=== PATIENT | female | born 1985 | race African-American/Black ===

== ENCOUNTER 2017-05-09 14:20 | Emergency (ER) | payer OTHER, SELFPAY ==
--- NOTE | 2017-05-09 15:34 | RAD ---
LEFT TOES 3 VIEWS: CLINICAL HISTORY: Injury, pain. FINDINGS: Left toe series centered on the 1st and 2nd digits reveals no evidence of fracture or dislocation. N o radiopaque foreign body visualized. IMPRESSION: No acute fracture evident. POS: [facility]
[2017-05-09] MEDS ORDERED: Ketorolac Tromethamine 30 MG/ML VIAL ONE (16:46)
== END 2017-05-09 17:09 | disposition home or self-care (01) ==
LOC: ERS 14:20
DX: S90.112A Contusion of left great toe without damage to nail, initial encounter (principal); F17.210 Nicotine dependence, cigarettes, uncomplicated; W22.8XXA Striking against or struck by other objects, initial encounter
CPT/HCPCS: 96372; J1885

== ENCOUNTER 2017-05-21 14:55 | Emergency (ER) | payer SELFPAY ==
[2017-05-21] MEDS ORDERED: Lidocaine 1% w/Epinephrine 1:100K 20 ML VIAL ONE (17:11)
== END 2017-05-21 19:08 | disposition home or self-care (01) ==
LOC: ERS 14:55
DX: L72.3 Sebaceous cyst (principal); F17.210 Nicotine dependence, cigarettes, uncomplicated
CPT/HCPCS: 10060; 99406; J2001

== ENCOUNTER 2019-11-11 16:13 | Emergency (ER) | payer MEDICARE, SELFPAY | END 2019-11-11 17:07 | disposition home or self-care (01) | LOC: ERS 16:13 | DX: L02.01 Cutaneous abscess of face (principal); F17.210 Nicotine dependence, cigarettes, uncomplicated | CPT/HCPCS: 10060 ==

== ENCOUNTER 2019-11-23 03:09 | Emergency (ER) | payer MEDICARE, SELFPAY ==
[2019-11-23] MEDS ORDERED: Ketorolac Tromethamine 30 MG/ML VIAL ONE (03:22)
== END 2019-11-23 03:28 | disposition home or self-care (01) ==
LOC: ERS 03:09
DX: K02.9 Dental caries, unspecified (principal); F17.210 Nicotine dependence, cigarettes, uncomplicated
CPT/HCPCS: 96372; 99282; J1885

== ENCOUNTER 2020-06-09 10:43 | Emergency (ER) | payer SELFPAY ==
[2020-06-09] MEDS ORDERED: Ondansetron ODT 8 MG TAB ONE (11:41)
[2020-06-09] MEDS ORDERED: Ketorolac Tromethamine 30 MG/ML VIAL ONE (11:41)
[2020-06-09] MEDS ORDERED: HYDROmorphone 0.5 MG/0.5 ML SYRINGE ONE (11:41)
== END 2020-06-09 12:22 | disposition home or self-care (01) ==
LOC: ERS 10:43
DX: M54.42 Lumbago with sciatica, left side (principal); F17.210 Nicotine dependence, cigarettes, uncomplicated
CPT/HCPCS: 96372; 99283; J1170; J1885; Q0162

== ENCOUNTER 2020-06-24 15:13 | Emergency (ER) | payer SELFPAY ==
[2020-06-24] MEDS ORDERED: Ketorolac Tromethamine 30 MG/ML VIAL ONE (15:49)
[2020-06-24] MEDS ORDERED: Morphine 4 MG/ML VIAL ONE (15:49)
--- NOTE | 2020-06-24 16:56 | RAD ---
LEFT HIP TWO VIEWS: History: Left hip pain. FINDINGS: Joint space is well preserved. No fracture or other bony findings. IMPRESSION: Unremarkable left hip. POS: OFF
== END 2020-06-24 17:02 | disposition home or self-care (01) ==
LOC: ERS 15:13
DX: M54.42 Lumbago with sciatica, left side (principal); F17.210 Nicotine dependence, cigarettes, uncomplicated
CPT/HCPCS: J1885; J2270

== ENCOUNTER 2021-04-03 02:32 | Emergency (ER) | payer SELFPAY ==
[2021-04-03] MEDS ORDERED: Lidocaine 1% PF 5 ML VIAL ONE (03:55)
[2021-04-03] MEDS ORDERED: Ketorolac Tromethamine 30 MG/ML VIAL ONE (05:00)
== END 2021-04-03 05:16 | disposition home or self-care (01) ==
LOC: ERS 02:32
DX: L02.01 Cutaneous abscess of face (principal)
CPT/HCPCS: 10060; 96372; J1885

== ENCOUNTER 2023-06-29 16:09 | Emergency (ER) | payer SELFPAY ==
[2023-06-29] MEDS ORDERED: Ketorolac Tromethamine 30 MG (1 mL) VIAL ONE (17:36)
[2023-06-29 17:48] LABS: #Monocytes 0.5 thou/uL (0.11-0.59); #Neutrophils 2.4 thou/uL (1.40-6.50); %Basophils 0.4 % (0.0-1.0); %Lymphocytes 38.9 % (21.0-51.0); %Monocytes 9.7 % (0.0-10.0); %Neutrophils 50.6 % (42.0-75.0); Hematocrit 35.4 % (36.0-47.0); Hemoglobin 11.2 g/dL (12.0-16.0); Mean Corpuscular HGB CONC 31.6 g/dL (32.0-36.0); Mean Corpuscular Hemoglobin 24.7 pg (27.0-31.0); Mean Corpuscular Volume 78.1 fl (78.0-98.0); Mean Platelet Volume 9.5 fL (7.4-10.4); Platelet Count 247 10x3/uL (130-400); Red Blood Cell (RBC) Count 4.53 mill/uL (4.20-5.40); White Blood Cell (WBC) Count 4.8 10x3/uL (4.8-10.8)
[2023-06-29 18:16] LABS: Troponin I Less than 0.010 ng/mL (< 0.028)
[2023-06-29 18:21] LABS: ALT (SGPT) 7 U/L (8-55); AST (SGOT) 9 U/L (5-34); Albumin 3.8 g/dL (3.5-5.0); Alkaline Phosphatase 50 U/L (40-110); Anion Gap 13 mmol/L (10-20); BUN (Urea Nitrogen) 8 mg/dL (7.0-18.7); Bilirubin, Total 0.2 mg/dL (0.2-1.2); Calc. Creatinine Clearance 0 mL/min (70-130); Calcium 8.9 mg/dL (7.8-10.44); Carbon Dioxide 23 mmol/L (22-29); Chloride 108 mmol/L (98-107); Estimated GFR 101; Globulin 3.3 g/dL (2.4-3.5); Glucose 85 mg/dL (70-105); Lipase 15 U/L (8-78); Potassium 4.3 mmol/L (3.5-5.1); Protein, Total 7.1 g/dL (6.0-8.3); Sodium 140 mmol/L (136-145)
== END 2023-06-29 20:07 | disposition home or self-care (01) ==
LOC: ERS 16:09
DX: R07.81 Pleurodynia (principal); M79.18 Myalgia, other site; F17.210 Nicotine dependence, cigarettes, uncomplicated
CPT/HCPCS: 71046; 76705; 80053; 83690; 84484; 85025; 93005; 96374; J1885